=== PATIENT | male | born 1930 | race Caucasian/White ===

== ENCOUNTER 2016-11-13 21:02 | Emergency (ER) | payer MEDICARE, OTHER ==
--- NOTE | 2016-11-14 19:09 | ER ---
ADMIT: 11/13/2016 RM/LOC: ER [facility] MR#: [id number] [address] [id number] SATINDER CHAMBERLAIN [address] [place] [address] Emergency Room Report SEX: M AGE: 85 : 1930 DATE: 11/13/2016 SUBJECTIVE: The patient is an 85-year-old male with a past medical history of anxiety and IBD, who came to the ER with a chief complaint of right inguinal discomfort and also bulging. The patient states for the last month, he notice intermittent bulging of the right inguinal area and stated that the bulging would resolve by itself and every time it bulges, he has some ybef-uh-aadkimyf discomfort over the area and mild pain. The patient states today also, he noticed the bulging and also the pain, and he just wanted to get it checked because the patient is worried that it could be life threatening. The patient denies any xvwrdvbc-fa-ykynaw pain. His last bowel movement was today and was normal. The patient denies any nausea or vomiting. PHYSICAL EXAMINATION: GENERAL: The patient was anxious, but in no obvious pain. HEAD AND NECK: Normal. CHEST: Clear bilaterally. HEART: Normal heart sounds. ABDOMEN: Completely soft and nontender. : I checked for the genitalia, grossly normal. Testicles bilaterally nontender and non erythematous scrotum. Epididymis bilaterally normal and nontender. I did not feel any hydrocele or other varicose or abnormalities. After I stood the patient up on the right inguinal canal, the patient had right inguinal hernia which reduced by itself spontaneously after coughing. In the physical exam, it did not look incarcerated or strangulated. Also, the patient's labs are noncontributory and imaging was also negative. The patient was reassured. The patient is very anxious about the possibility of suddenly passing away from the hernia or other abdominal pain. The patient was reassured and was advised to follow up as an outpatient with primary care doctor for possible options for the hernia. Kali Hurst MD/ randee JOB #: [id number] CC: Kali Hurst MD, Attending Physician Satinder Blanco MD, Family Physician
== END 2016-11-13 22:52 | disposition home or self-care (01) ==
LOC: ER 21:02
DX: K40.90 Unilateral inguinal hernia, without obstruction or gangrene, not specified as recurrent (principal); F41.9 Anxiety disorder, unspecified; Z79.899 Other long term (current) drug therapy; Z79.82 Long term (current) use of aspirin; Z88.8 Allergy status to other drugs, medicaments and biological substances